=== PATIENT | female | born 1995 | race Caucasian/White ===

== ENCOUNTER 2018-12-20 10:37 | Outpatient (CLI) | payer OTHER ==
[~2018-12-20 10:37] MED LIST: Iopamidol 370 76% 100 ML VIAL ONE
--- NOTE | 2018-12-20 11:56 | CT ---
FContrast-enhanced CT images abdomen and pelvis. HISTORY: Abdominal pain. Contrast-enhanced CT images of the abdomen and pelvis obtained after administration of IV and oral co ntrast. The lung bases are unremarkable. No evidence of free intraperitoneal air seen. The liver, spleen, gallbladder, pancreas, adrenal glands and kidneys are unremarkable. No dilated loops of small bowel seen. The colon is unremarkable with no evidence of masses or lesions. The SMA, celiac and inferior mesenteric arteries are patent. The splenic vein, superior mesenteric vein and portal veins are unremarkable. The uterus is unremarkable. Both ovaries visualized. There is a right ovarian 1.8 cm corpus luteal cyst. A small amount of free p elvic fluid is seen. IMPRESSION: Unremarkable contrast enhanced CT images of the abdomen and pelvis.
== END 2018-12-20 10:38 | disposition home or self-care (01) ==
LOC: SCSCT 10:37
PROVIDERS: ATTEND Internal Medicine Gastroenterology
DX: R19.7 Diarrhea, unspecified (principal); R14.1 Gas pain; R19.4 Change in bowel habit; R10.9 Unspecified abdominal pain; R11.0 Nausea; Q79.6 Ehlers-Danlos syndromes
CPT/HCPCS: 74177; Q9967

== ENCOUNTER 2019-06-12 10:32 | Outpatient (CLI) | payer OTHER ==
[~2019-06-12 10:32] MED LIST changes: +EPINEPHrine 1 MG/ML AMP ONE; +Gadobenate Dimeglumine 529 MG/1 ML (20ML VIAL) ONE; +Iopamidol 300 61% 100 ML VIAL FS ONE; -Iopamidol 370 76% 100 ML VIAL ONE; +Lidocaine 1% PF 10 ML AMP ONE
--- NOTE | 2019-06-12 12:13 | RAD ---
XR Hip Lt Arthrogram History: M 25.859 femoral acetabular impingement Comparison: None. Findings: Patient was brought to the fluoroscopy suite. All questions were answered. Informed consent was obtained. Timeout performed. Patient's left hip was prepped and draped in normal sterile fashion. 3 mL lidocaine was instilled int o the superficial and deep soft tissues. Under fluoroscopic guidance using a 22-gauge spinal needle the left hip joint was accessed. 10 mL of contrast solution was instilled. Patient tolerated the procedure well without complication. Impression: Technically successful fluoroscopic guided left hip arthrogram for MRI.
--- NOTE | 2019-06-12 13:13 | MRI ---
MRI Lower Ext Jt Lt W Con History: Hip pain. M 25.859 femoral acetabular impingement Comparison: Arthrogram same day Findings: Bones: There is red marrow within the lower lumbar spine. No fracture. No malalignment. No contusion. Small synovial herniation pit anterior superior left femoral head/neck junction. 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 Tendons: The hamstring tendons are intact. Quadriceps tendons are intact. Psoas tendon is intact. Muscles: Muscle signal and bulk is normal. Normal appearance of the quadratus femoris muscles. Intrapelvic soft tissues: Trace free fluid within the pelvis. No dilated loops of bowel. Labrum: Normal anterior superior sublabral sulcus extending into a posterior superior sublabral sulcu s. No labral tear. Intra-arterial soft tissues: Ligamentum teres is intact. No free bodies. Synovial plica are intact. J oint capsule is normal. Intra-articular cartilage: Intact. No defects. No delamination. Impression: 1. Small synovial herniation pit of the left femoral head/neck junction can be seen with femoral acet abular impingement. 2. Intact labrum without tear. 3. Small volume free fluid in the pelvis with bilateral ovarian follicles likely physiologic. 4. 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
== END 2019-06-12 10:33 | disposition home or self-care (01) ==
LOC: RAD 10:32
PROVIDERS: ATTEND Orthopaedic Surgery
DX: M25.852 Other specified joint disorders, left hip (principal)
CPT/HCPCS: 27093; A9577; J0171; J2001; Q9967